=== PATIENT | female | born 1965 | race African-American/Black ===

== ENCOUNTER 2017-02-17 05:42 | Emergency (ER) | payer OTHER ==
[~2017-02-17] VITALS: Ht 175.3 cm; Wt 71.2 kg
[2017-02-17] MEDS ORDERED: LORAZEPAM 1 MG TABLET ONE (05:50)
--- NOTE | 2017-02-17 05:54 | NUR ---
BB SELF DUE TO COUGHING AND DIFFICULTY BREATHING. PT STATES SHE INHALED SMOKE FROM [employer] FIRES. A/O X3. PULSE OX 99% ON ROOM AIR. PT IS TACHYPNEIC, RR 22, AND TACHYCARDIC, HR 114. LUNG SOUNDS CLEAR.
[2017-02-17] MEDS ORDERED: LORAZEPAM 1 MG TABLET PO ONE (06:00)
--- NOTE | 2017-02-17 06:15 | NUR ---
DR VELÁSQUEZ AT BEDSIDE.
--- NOTE | 2017-02-17 06:23 | NUR ---
RT AT BEDSIDE. ADMINISTERING BREATHING TREATMENT.
[2017-02-17] MEDS ORDERED: ALBUTEROL FS 2.5 MG/3 ML VIAL.NEB ONE (06:26)
[2017-02-17] MEDS ORDERED: ALBUTEROL FS 2.5 MG/3 ML VIAL.NEB CONTNEB ONE (06:30)
[2017-02-17 07:00] VITALS: BP 125/79
== END 2017-02-17 06:46 | disposition home or self-care (01) ==
LOC: ER 05:44
DX: J45.901 Unspecified asthma with (acute) exacerbation (principal); I10 Essential (primary) hypertension; F31.9 Bipolar disorder, unspecified; Z86.19 Personal history of other infectious and parasitic diseases
CPT/HCPCS: 93005; 94640 ×2; 99284; A4606; Z7610